=== PATIENT | male | born 1965 | race Caucasian/White ===

== ENCOUNTER → 2018-05-08 18:37 | Outpatient (CLI) | payer OTHER, SELFPAY ==
--- NOTE | 2018-05-08 18:39 | DI.MRI.S_ITS ---
PROCEDURE: MR KNEE LT WO CON INDICATIONS: LEFT KNEE PAIN TECHNIQUE: Noncontrast sagittal PD fast spin echo and T2 fast spin echo with fat saturation, sagittal 3-D FLASH with fat saturation; coronal T1 spin echo and PD fast spin echo with fat saturation, and axial PD fast spin echo with fat saturation through the knee. COMPARISON: [facility], MR, KNEE WITHOUT CONTRAST, 09/17/2012, 10:14. FINDINGS: Image quality: Excellent. Menisci: Truncated appearance of the medial meniscus is seen with peripheral displacement of medial meniscus bowing medial collateral ligament. The finding is suggestive of prior partial meniscectomy. No gross re-tear is noted. Lateral meniscus is intact. The meniscal root ligaments appear intact. Cruciate ligaments: The anterior and posterior cruciate ligaments appear intact. Medial structures: There is low-grade MCL sprain. No evidence of MCL tear. The posterior oblique ligament, semimembranosus tendon insertions, oblique popliteal ligament, and meniscocapsular junction appear intact. Visualized portions of the pes anserinus tendons appear normal. No abnormal bursal fluid. Lateral structures: The lateral collateral ligament, long and short heads of the biceps femoris tendon appear intact. The popliteus tendon appears normal; the popliteofibular ligament appears intact. The posterosuperior and anteroinferior popliteomeniscal fascicles appear intact. The arcuate and fabellofibular ligaments appear intact, on either side of the lateral inferior geniculate artery. Iliotibial band appears normal. Anterior structures: The quadriceps and patellar tendons appear intact. Patellar alignment is normal. No femoral trochlear dysplasia or ventral trochlear prominence. No edema in the infrapatellar fat pad. Soft tissue swelling and edema along anterior aspect of patella and proximal patellar tendon is seen. Bones and cartilage: There is mild compartment osteophytes. Low-grade chondromalacia involving apex of patella cartilage is also noted. Joint space: There is small to moderate amount of joint fluid. 1.4 x 1.5 x 3.9 cm popliteal cyst is seen. Normal appearing synovial plicae are incidentally noted. IMPRESSION: 1. Truncated appearance of the medial meniscus suggestive of prior partial meniscectomy. No gross re-tear is seen. No evidence of lateral meniscal tear. 2. Cruciate ligaments are intact. Low-grade proximal MCL sprain. 3. Mild tricompartmental osteophyte is. 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 Small amount of joint fluid and small popliteal cyst. Dictated by: Alexx Valadez M.D. on 05/09/2018 at 9:36 Approved by: Alexx Valadez M.D. on 05/09/2018 at 9:44
== END ==
PROVIDERS: PCP Family Medicine; Visit Provider Orthopaedic Surgery
DX: S83.412A Sprain of medial collateral ligament of left knee, initial encounter (principal); M25.562 Pain in left knee; M22.42 Chondromalacia patellae, left knee; M71.22 Synovial cyst of popliteal space [Baker], left knee; M25.762 Osteophyte, left knee
CPT/HCPCS: 73721

== ENCOUNTER → 2022-04-13 17:25 | Outpatient (CLI) | payer OTHER, SELFPAY ==
--- NOTE | 2022-04-13 | DI.MRI.S_ITS ---
PROCEDURE: MR SHOULDER LT WO CON INDICATIONS: INJURY OF LT ROTATOR CUFF TECHNIQUE: Noncontrast oblique coronal T2 fast spin echo with fat saturation, oblique sagittal T1 spin echo and T2 fast spin echo with fat saturation, axial T1 spin echo and T2 fast spin echo with fat saturation through the shoulder. COMPARISON: [facility], CR, XR SHOULDER 2+ VIEWS LEFT, 09/04/2021, 15:40. [facility], CR, XR SHOULDER 2+ VIEWS LEFT, 03/09/2022, 14:07. FINDINGS: Image quality: Excellent. Rotator cuff: There is full-thickness tearing of the supraspinatus tendon and the anterior fibers of the infraspinatus tendon from their distal footprints measuring approximately 16 mm in anterior-posterior dimension. The bursal sided fibers are retracted by approximately 15 mm. There is delamination and further retraction of articular sided fibers by up to 30 mm. The teres minor and subscapularis tendons are intact. There is no significant rotator cuff muscle atrophy. Bones and bursae: No acute trabecular bone injury or fracture. Small chronic traction cystic changes are seen at the posterosuperior humeral head. No focal glenohumeral cartilage defect identified. Moderate degenerative changes at the acromioclavicular joint with marginal osteophytes and subchondral cystic changes. A small amount of subacromial/subdeltoid bursal fluid communicates with the glenohumeral joint space. Capsule and soft tissues: Mild degeneration of the superior labrum without a displaced labral tear identified. The proximal biceps long head tendon demonstrates moderate tendinosis. There is partial effacement of the normal fat signal in the rotator interval. The glenohumeral ligaments appear to be intact. IMPRESSION: 1. Full-thickness tearing of the supraspinatus tendon and the anterior fibers of the infraspinatus tendon measuring 16 mm in anterior-posterior dimension. There is approximately 15 mm retraction of bursal sided fibers as well as delamination and further retraction of the articular sided fibers measuring up to 30 mm. 2. Moderate biceps long head tendinosis. 3. Mild superior labral degeneration. 4. Moderate acromioclavicular joint osteoarthrosis. 5. Small subacromial/subdeltoid bursal effusion communicates with the glenohumeral joint space. Dictated by: Rogelio Gomez M.D. on 04/14/2022 at 11:36 Approved by: Rogelio Gomez M.D. on 04/14/2022 at 11:39
== END ==
PROVIDERS: Referring Provider Orthopaedic Surgery; Visit Provider Orthopaedic Surgery
DX: S46.012A Strain of muscle(s) and tendon(s) of the rotator cuff of left shoulder, initial encounter (principal); M19.012 Primary osteoarthritis, left shoulder; M25.412 Effusion, left shoulder; X58.XXXA Exposure to other specified factors, initial encounter
CPT/HCPCS: 73221

== ENCOUNTER 2023-11-28 12:17 | Day surgery (SDC) | payer OTHER, SELFPAY ==
--- NOTE | 2023-11-28 | PATH_ITS ---
[facility] Accession Number: [id number] No. of containers..02 Tissue . 01 Material submitted: . PART A: gastrointestinal site - GASTRIC BIOPSY PART B: esophagus, E-G Junction - GE JUNCTION . 01 Diagnosis: A. STOMACH, BIOPSY: Body type mucosa with mild chronic inflammation. Negative for intestinal metaplasia. Negative for Helicobacter organisms by immunohistochemistry. Negative for dysplasia and malignancy. . B. GASTROESOPHAGEAL JUNCTION, BIOPSY: Squamous mucosa with no diagnostic abnormality. Rare columnar mucosa negative for intestinal metaplasia. Intraepithelial eosinophils are not increased. Negative for dysplasia and malignancy. [facility] 12/05/2023 1146 Local . 01 Electronically signed: . Heather Vaughan MD, Pathologist NPI- [id number] . 01 Gross description: . Part A: GASTRIC BIOPSY: Received in formalin is 1 fragment(s) of galindo, soft tissue measuring 0.3 x 0.3 x 0.2 cm submitted entirely in 1 cassette(s) Part B: GE JUNCTION: Received in formalin are 2 fragment(s) of galindo, soft tissue measuring 0.2 x 0.2 x 0.2 cm to 0.3 x 0.2 x 0.2 cm submitted entirely in 1 cassette(s) /[facility] 11/30/2023 2210 Local . 01 Microscopic: . A. An immunohistochemical stain was performed to evaluate for Helicobacter organisms and is negative. The control stain showed appropriate reactivity. . B. An AB-PAS stain was performed to evaluate for fungal organisms and is negative. The control stain showed appropriate reactivity. . . * This test was developed and its performance characteristics determined by [facility]. It has not been cleared or approved by the U.S. Food and Drug Administration. The FDA has determined that such clearance or approval is not necessary. This test is used for clinical purposes. It should not be regarded as investigational or for research. . 01 Pathologist provided ICD-10: Z12.11, K21.9 . 01 CPT . 462069, 517984, D35191, 278939 Specimen Comment: A courtesy copy of this report has been sent to [phone] Performed at: 01 [facility] [address] [place] [address], [place], [place] [id number] MD Jose Miguel Castro MD Phone: [phone]
--- NOTE | 2023-11-28 12:32 | P.HP_ITS ---
History of Present Illness History of Present Illness Date Patient Seen: 11/28/23 Time Patient Seen: 12:32 Chief complaint: EGD/Colonoscopy Narrative: 58-year-old man PMH colonic polyps and Barretts esophagus here for routine screening. Last EGD 3 years ago Barretts without dysplasia. Mother had colon cancer, father had esophageal cancer. No abdominal concerns, GERD is controlled with omeprazole twice daily.. [facility] Medical History (Updated 11/28/23 @ 12:33 by Esequiel Walters MD) Personal history of colonic polyps Barretts esophagus Social History Smoking Status: Former smoker alcohol intake: never Meds Home Medications and Allergies Home Medications Medication Instructions Recorded Confirmed Type IBUPROFEN (Motrin / Advil) 800 mg PO PRN ##0 07/31/08 History aspirin 81 mg tablet 81 mg PO DAILY 11/28/23 11/28/23 History metoprolol succinate 25 mg 25 mg PO DAILY 11/28/23 11/28/23 History tablet,extended release 24 hr omeprazole 10 mg capsule,delayed 10 mg PO DAILY 11/28/23 11/28/23 History release rosuvastatin 10 mg tablet 10 mg PO ONCE PM 11/28/23 11/28/23 History vancomycin 125 mg capsule 125 mg PO 4XD 11/28/23 11/28/23 History Allergies Allergy/AdvReac Type Severity Reaction Status Date / Time Sulfa (Sulfonamide Allergy Intermediate Hives Verified 11/28/23 12:37 Antibiotics) Exam Narrative Exam Narrative: General adult man alert oriented no acute distress Chest nonlabored respiration Extremities warm well perfused Assessment & Plan Assessment & Plan narrative: 58-year-old man PMH Barretts esophagus without dysplasia and colonic polyps here for routine upper and lower endoscopy. Technical details were discussed. Risks, benefits, alternatives explained. Risks including but not limited to myocardial infarction, aspiration, bleeding, pain, missed lesion, incomplete examination, need for further radiographic studies, intestinal injury, and need for major abdominal surgery were discussed. All questions were answered to their satisfaction, and they are in agreement with this plan.
[2023-11-28 12:54] VITALS: BP 113/69; PULSE 56; RESP 16; TEMP 36.7; O2SAT 100
[2023-11-28] MEDS: LACTATED RINGERS 1,000 ML 42 ML IV (12:54)
--- NOTE | 2023-11-28 14:37 | PM.OP.EC ---
Operative Date/Time/Diagnoses Date of procedure: 11/28/23 Time of procedure: 14:37 Pre-op diagnosis: History of Issa's esophagus, Family history of colon cancer Procedure & Clinicians Study performed: Esophagogastroduodenoscopy and colonoscopy Same procedure as scheduled: Yes Indications: History of Barretts esophagus and family history of colon cancer Surgeon: Esequiel Walters Procedure Notes Procedure in detail: The history and physical was performed/updated and the patient is ASA class is 2. The procedure was discussed in detail with the patient. Potential risks complications including infection, bleeding, missed diagnosis, perforation, need for surgery, and were explained. Their questions were answered and informed consent was obtained. Patient placed in left lateral decubitus position. Time out was performed. Procedural sedation was administered by Anesthesia. A bite block was placed. the scope was inserted into the mouth and advanced through the esophagus and into the stomach. the pylorus was intubated and the duodenum was examined to the 2nd portion.. The scope was retroflexed within the stomach. The stomach was then decompressed and scope pulled back to the GE junction. The scope was then removed Examination began with a thorough inspection of the perianal area there was no evidence of fissures, fistulae, external hemorrhoids or cutaneous malignancy. The colonoscopy scope was then placed into the anal canal and was advanced to the cecum, which was identified by the ileocecal valve, the appendiceal orifice and the confluence of the taenia. The scope was then slowly withdrawn examining colon thoroughly in all directions, irrigating it of any residual stool. FINDINGS Colonoscopy normal. No masses polyps or inflammation. Upper endoscopy demonstrates some mild thickening of the gastric body over span of several cm biopsy taken with forceps. Biopsy of the GE junction was performed with forceps. The patient tolerated the procedure well. They will be discharged once criteria are met. The prep was of good/excellent quality. The withdrawl time was 7 minutes. Specimen(s): other (Gastric biopsy, GE junction biopsy) Impression: Normal colonoscopy Post-procedure Recommendations: Colonscopy in 5 years and EGD in 3 years Disposition: same day surgery
[2023-11-28 15:07] VITALS: BP 109/67; PULSE 60; RESP 15; TEMP 36.8; O2SAT 95
[2023-11-28 15:11] VITALS: BP 114/72; PULSE 59; RESP 15; TEMP 36.7; O2SAT 97
[2023-11-28 15:17] VITALS: BP 109/75; PULSE 59; RESP 16; TEMP 36.7; O2SAT 98
== END 2023-11-28 15:33 | disposition home or self-care (01) ==
PROVIDERS: Referring Provider Surgery; Visit Provider Surgery
PROC: 0DJ08ZZ Inspection of Upper Intestinal Tract, Via Natural or Artificial Opening Endoscopic (ICD-10-PCS; CPT 45378; principal; 2023-11-28 13:15)
PROC: 0DJD8ZZ Inspection of Lower Intestinal Tract, Via Natural or Artificial Opening Endoscopic (ICD-10-PCS; CPT 45378; 2023-11-28 13:15)
DX: Z12.11 Encounter for screening for malignant neoplasm of colon (principal); Z86.010 Personal history of colon polyps; Z80.0 Family history of malignant neoplasm of digestive organs; Z87.19 Personal history of other diseases of the digestive system; K29.50 Unspecified chronic gastritis without bleeding
CPT/HCPCS: 45378; 43239; J2704